=== PATIENT | female | born 1980 | race Caucasian/White ===

== ENCOUNTER 2017-03-10 16:00 | Emergency (ER) | payer BC ==
[~2017-03-10] VITALS: Ht 157.5 cm; Wt 50.0 kg
[2017-03-10] MEDS ORDERED: HYDR-305 PO (16:47)
[2017-03-10] MEDS ORDERED: MELO-107 PO (16:47)
[2017-03-10] MEDS ORDERED: GABA-529 PO (16:47)
[2017-03-10] MEDS ORDERED: SODIUM CHLORIDE 0.9% 1,000 ML IV ONE (20:15)
[2017-03-10] MEDS ORDERED: ONDANSETRON HCL 4 MG/2 ML VIAL IVP ONE (20:15)
[2017-03-10] MEDS ORDERED: MORPHINE SULFATE 4 MG/ML SYRINGE IVP ONE (20:15)
[2017-03-10 21:48] VITALS: BP 126/70
== END 2017-03-10 21:52 | disposition home or self-care (01) ==
LOC: EMS 16:05
DX: G43.909 Migraine, unspecified, not intractable, without status migrainosus (principal)
CPT/HCPCS: 81002; 96374; 96375; 99285; J2270; J2405; J7030

== ENCOUNTER 2017-08-19 16:27 | Emergency (ER) | payer BC ==
[~2017-08-19] VITALS: Ht 157.5 cm; Wt 50.0 kg
[~2017-08-19 16:27] MED LIST: GABA-529 PO; HYDR-305 PO; MELO-107 PO
[2017-08-19] MEDS ORDERED: HYDROCODONE/ACETAMINOPHEN 5-325 MG TABLET PO ONE (17:45)
[2017-08-19] MEDS ORDERED: LIDOCAINE HCL/PF 1% 2 ML VIAL IM ONE (18:15)
[2017-08-19] MEDS ORDERED: BENZOCAINE/MENTHOL LOZENGE PO ONE (18:15)
[2017-08-19] MEDS ORDERED: CefTRIAXone SODIUM 1 GM/VIAL IM ONE (18:15)
[2017-08-19] MEDS ORDERED: DEXAMETHASONE 4 MG TABLET PO ONE (18:15)
[2017-08-19 18:54] VITALS: BP 136/68
== END 2017-08-19 19:02 | disposition home or self-care (01) ==
LOC: EMS 16:27
DX: J02.9 Acute pharyngitis, unspecified (principal); G43.909 Migraine, unspecified, not intractable, without status migrainosus
CPT/HCPCS: 87430; 96372; 99284; J0696; J3490; J8540